=== PATIENT | female | born 2005 | race Caucasian/White ===

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

== ENCOUNTER 2024-02-14 17:01 | Outpatient (CLI) | payer OTHER, SELFPAY ==
[2024-02-14 17:27] LABS: HCG Quant, Pregnancy 383 mIU/mL (1-3)
== END 2024-02-14 17:02 | disposition home or self-care (01) ==
LOC: LBO 17:03
PROVIDERS: PCP Family Medicine; Visit Provider Advanced Practice Midwife
DX: O26.91 Pregnancy related conditions, unspecified, first trimester (principal)
CPT/HCPCS: 36415; 84702

== ENCOUNTER 2024-02-16 17:16 | Outpatient (CLI) | payer OTHER, SELFPAY ==
[2024-02-16 16:32] LABS: HCG Quant, Pregnancy 299 mIU/mL (1-3)
== END 2024-02-16 17:17 | disposition home or self-care (01) ==
LOC: LBO 17:17
PROVIDERS: PCP Family Medicine; Visit Provider Advanced Practice Midwife
DX: O26.91 Pregnancy related conditions, unspecified, first trimester (principal)
CPT/HCPCS: 36415; 84702

== ENCOUNTER 2024-02-16 18:09 | Emergency (ER) | payer OTHER, SELFPAY ==
[2024-02-16 18:12] VITALS: BP 143/88; PULSE 116; RESP 18; TEMP 36.6; O2SAT 99
--- NOTE | 2024-02-16 18:30 | ED.GENADUL_ITS ---
Discharge Plan Disposition Patient Disposition: Home Condition: Stable Discharge Details Clinical Impression: Threatened miscarriage in early Primary Care Provider: Michael Tavera ED Provider: Gilma Perez Home Meds and New Rx's Prescriptions: No Action No Known Home Meds Discharge Instructions Instructions: Bleeding in Early ED Additional Instructions: Please schedule yourself for the ultrasound, call the number on the sheet. Pelvic rest (no tampons or intercourse) until cleared by your REAL ESTATE ACQUISITION ANALYST. Follow up with [facility] in 3-5 days. Increase oral fluids, eat well. Return to the ER if you are bleeding and soaking through more than 2 pads an hour, you feel dizzy or lightheaded, fever, vomiting, or concerns. Your HCG is continuing to decrease the level today is 267. (Down from 299 this am). Follow up with primary care provider in 3-5 days. Return to ED sooner if any worsening or concerns. Referrals: [facility] [Provider Group] - 3 days Michael Tavera [Primary Care Provider] - 1 week Discharge Data Discharge Date/Time-TO BE ENTERED AT DEPARTURE: 02/16/24 21:15 HPI General Mode of arrival: ambulatory . Date/Time Provider Initiated Documentation: 02/16/24 18:15 . Limitations to Documentation: no limitations . Information obtained by: patient, family, RN notes reviewed and old records reviewed . HPI Narrative: 18 year old female presents to ED after having a dropping HCG quant level drawn x 2 at off site facility. Was unable to be seen again until Monday. Denies vaginal spotting or abdominal cramping at this time. Related Data Home Medications ?Medication ?Instructions ?Recorded ?Confirmed Unknown [No Known Home Meds] 04/24/18 05/24/21 Allergies Allergy/AdvReac Type Severity Reaction Status Date / Time No Known Allergies Allergy Verified 05/24/21 11:25 General Stated Complaint: REAL ESTATE ACQUISITION ANALYST ANNA MARIE: 3 Review of Systems All systems reviewed & are unremarkable except as noted in HPI and below Exam Narrative Exam Narrative: Constitutional: Alert and oriented x3. Appears stated age. Normal body habitus. Head: Normocephalic, no trauma. Eyes: Pupils PERRL, Red reflex noted, EOM's intact. Eyelids symmetrical without lesions, discharge, or swelling. ENT: Bilateral TM's WNL, External ear normal to inspection, no mastoid TTP, swelling, or erythema, Nasal turbinates WNL, no nasal discharge. Normal dentition, Posterior pharynx WNL, no exudate. Chest: RRR, Normal S1, S2, distal pulses intact. Resp: Lungs clear to auscultation bilaterally, no wheezes, rales, or rhonchi. Abdomen: Soft, non-distended, Normoactive bowel sounds all 4 quads. Musculoskeletal: Normal gait, Moves all 4 extremities without difficulty. Skin: No suspicious rashes or lesions. Capillary refill less than 2 sec. Neurologic: Cranial nerves II-XII intact. Alert and oriented x 3. Motor: No deficits noted. Sensory: Intact bilaterally all 4 extremities. Hematologic/Lymphatic: No ecchymosis, no lymphadenopathy. Course Vital Signs Vital signs: Vital Signs Temperature 36.6 C 02/16/24 18:12 Pulse 116 H 02/16/24 18:12 Respiratory Rate 18 02/16/24 18:12 Blood Pressure 143/88 H 02/16/24 18:12 Pulse Oximetry 99 02/16/24 18:12 Temperature 36.6 C 02/16/24 18:12 Temperature Source Temporal Artery Scan 02/16/24 18:12 Pulse 116 H 02/16/24 18:12 Respiratory Rate 18 02/16/24 18:12 Blood Pressure 143/88 H 02/16/24 18:12 Blood Pressure Position Sitting 02/16/24 18:12 Pulse Oximetry 99 02/16/24 18:12 Oxygen Delivery Method Room Air 02/16/24 18:12 Oxygen Flow Rate 0 02/16/24 18:12 Medical Decision Making 18 year old female presents to ED after having a dropping HCG quant level drawn x 2 at off site facility. Was unable to be seen again until Monday. Denies vaginal spotting or abdominal cramping at this time. Ultrasound at this time is unavailable we will order an outpatient ultrasound to be done tomorrow if possible. Will draw repeat hCG quant, Rh type and get a urinalysis. Urinalysis shows no evidence for UTI, patient is O-, beta-hCG quant is lower which is 267 compared to 299 earlier today. I do suspect threatened miscarriage. Will discuss home care pelvic rest and follow-up with women's wellness with patient and family who verbalized understanding. Outpatient ultrasound ordered to have done with follow-up with PCP and/or women's wellness. Lab Data Lab results reviewed: Yes I reviewed the patient's lab results. Labs: Laboratory Tests Range/Units 02/16/24 02/16/24 02/16/24 18:42 19:21 19:32 Beta HCG, Quant (1-3) mIU/mL 267 H Urine Color (Yellow) Yellow Urine Clarity (Clear) Clear Urine pH (5-8) 5.5 Ur Specific [place] (1.005-1.025) 1.010 Urine Protein (Neg-Trace) mg/dL Negative Urine Ketones (Negative) mg/dL Negative Urine Blood (Negative) Negative Urine Nitrite (Negative) Negative Urine Bilirubin (Negative) Negative Urine Urobilinogen (Up to 0.2) mg/dL 0.2 Ur Leukocyte Esterase (Negative) Negative Urine Glucose (Negative) mg/dL Negative ABO/Rh O Negative O Negative Antibody Screen NEGATIVE [employer]og[employer] Unit Number [id number] Unit Expiration Date 08/07/24 Product Lot # [id number] Quality:SDOH Health Related Social Needs: No Data to Display PFSH All Active Problems (Updated 02/16/24 @ 20:25 by Gilma Perez NP) Threatened miscarriage in early (Acute) Racing heart beat (Acute) Episodic lightheadedness (Acute) Stress fracture of fibula with routine healing (Acute) Social History Smoking/Tobacco Use Status: Never Smoking risk assessment performed?: Yes Alcohol Intake: never Drug use: Never Substance use type: does not use Do you feel safe in your relationship?: Yes
[2024-02-16 19:23] LABS: HCG Quant, Pregnancy 267 mIU/mL (1-3)
[2024-02-16 19:36] LABS: Bilirubin Negative (Negative); Blood Negative (Negative); Clarity Clear (Clear); Glucose Negative (Negative); Ketones Negative (Negative); Leukocyte Esterase Negative (Negative); Nitrite Negative (Negative); Urobilinogen 0.2 mg/dL (Up to 0.2); pH 5.5 (5-8)
[2024-02-16 20:50] VITALS: BP 146/51; PULSE 93; RESP 18; O2SAT 99
[2024-02-16] MEDS: RHO(D) Immune Globulin 1,500 UNIT Syringe 1500 UNIT IM (20:50)
[2024-02-16 21:14] VITALS: BP 140/71; PULSE 78; RESP 18; O2SAT 100
[2024-02-16 21:15] VITALS: BP 140/71; PULSE 78; RESP 18; O2SAT 100
== END 2024-02-16 21:15 | disposition home or self-care (01) ==
PROVIDERS: Emergency Provider Registered Nurse Emergency; PCP Family Medicine
DX: O20.0 Threatened abortion (principal); Z3A.01 Less than 8 weeks gestation of pregnancy
CPT/HCPCS: 36415; 86850; 86900; 86901; 90384; 99283; 81003; 84702; J2790

== ENCOUNTER 2024-02-26 01:50 | Outpatient (CLI) | payer OTHER, SELFPAY ==
[2024-02-26 16:37] LABS: HCG Quant, Pregnancy 321 mIU/mL (1-3)
== END 2024-02-26 01:51 | disposition home or self-care (01) ==
LOC: LBO 01:50
PROVIDERS: PCP Family Medicine; Visit Provider Obstetrics & Gynecology Gynecology
DX: O00.102 Left tubal pregnancy without intrauterine pregnancy (principal)
CPT/HCPCS: 36415; 84702

== ENCOUNTER 2024-02-28 15:40 | Outpatient (CLI) | payer OTHER, SELFPAY ==
[2024-02-28 16:05] LABS: HCG Quant, Pregnancy 258 mIU/mL (1-3)
== END 2024-02-28 15:41 | disposition home or self-care (01) ==
LOC: LBO 15:40
PROVIDERS: PCP Family Medicine; Visit Provider Obstetrics & Gynecology Gynecology
DX: O00.102 Left tubal pregnancy without intrauterine pregnancy (principal)
CPT/HCPCS: 36415; 84702

== ENCOUNTER 2024-03-06 15:26 | Outpatient (CLI) | payer OTHER, SELFPAY ==
[2024-03-06 17:21] LABS: HCG Qual (Serum) Positive
[2024-03-06 19:43] LABS: HCG Quant, Pregnancy 37 mIU/mL (1-3)
== END 2024-03-06 15:27 | disposition home or self-care (01) ==
LOC: LBO 15:27
PROVIDERS: PCP Family Medicine; Visit Provider Obstetrics & Gynecology Gynecology
DX: O00.102 Left tubal pregnancy without intrauterine pregnancy (principal); O26.899 Other specified pregnancy related conditions, unspecified trimester; Z67.91 Unspecified blood type, Rh negative
CPT/HCPCS: 84702; 84703

== ENCOUNTER 2024-03-22 15:39 | Outpatient (CLI) | payer OTHER, SELFPAY ==
[2024-03-22 16:22] LABS: HCG Quant, Pregnancy 1 mIU/mL (1-3)
== END 2024-03-22 15:40 | disposition home or self-care (01) ==
LOC: LBO 15:40
PROVIDERS: PCP Family Medicine; Visit Provider Obstetrics & Gynecology Gynecology
DX: O00.102 Left tubal pregnancy without intrauterine pregnancy (principal)
CPT/HCPCS: 36415; 84702

== ENCOUNTER 2024-12-22 14:15 | Emergency (ER) | payer OTHER, SELFPAY ==
[2024-12-22 14:17] VITALS: BP 146/86; PULSE 107; RESP 18; TEMP 36.7; O2SAT 98
--- NOTE | 2024-12-22 14:41 | W.ED.GENAD ---
Discharge Plan Disposition Patient Disposition: Home Condition: Stable Discharge Details Clinical Impression: Red stool, Nausea, vomiting and diarrhea Primary Care Provider: Michael Tavera ED Provider: Kimberly Brown Home Meds and New Rx's Prescriptions: No Action citalopram 10 mg tablet 10 mg PO DAILY Patient Comments: TAKE ONE TABLET BY MOUTH EVERY DAY Discharge Instructions Instructions: Nausea and Vomiting, Adult ED Additional Instructions: You were seen in the emergency department today for evaluation of nausea with vomiting and red diarrhea. In our department you had a full physical examination performed, and had laboratory studies that were quite reassuring. You received IV fluids because you did look slightly dehydrated, likely in the setting of alcohol consumption. At this time, I am most concerned for the potential for food to have discolored your stool, though you could certainly be developing an early case of gastroenteritis, and infection similar to this stomach flu. You had no evidence of ongoing blood in your stool or anemia to suggest heavy bleeding inside your colon. I recommend that you maintain good hydration and nutrition and follow-up with your primary care provider for reassessment in the next few days. If you have continued episodes of bloody stool, develop abdominal pain that changes or worsens, or have any other symptoms that cause you concern you should return to the emergency department for reevaluation. Thank you for allowing us to be part of your care. HPI General Mode of arrival: ambulatory. Date/Time Provider Initiated Documentation: 12/22/24 14:19. Limitations to Documentation: no limitations. Information obtained by: patient, family and old records reviewed. HPI Narrative: This is a 19-year-old female patient with a history of ectopic , presenting for evaluation of vomiting and red diarrhea. The patient reports that she thought initially that she had just drank too much last night, had 3 episodes of vomiting this morning but now feels much improved, without ongoing nausea, and has been able to tolerate oral intake. She did have an episode of diarrhea during this event that was bright red, states that she has since passed another formed stool without evidence of redness or blood. The patient reports that for the last several days she has not consumed any red foods, though she did consume food containing beets just prior to her episode of red diarrhea. She states that she has not had any exposure to untreated water sources, has not taken antibiotics recently, has not been hospitalized, and there is nobody else in her home that is sick with similar diarrheal symptoms. She states that she has not tried any medications for management of her symptoms, she does still have some generalized abdominal pain rated at a 4 out of 10, located in the lower portion of her abdomen. She is expecting her menses sometime in the next week and a half, does not utilize any form of prevention. States she is not experiencing any vaginal discharge or bleeding, urinary symptoms. Related Data Home Medications ?Medication ?Instructions ?Recorded ?Confirmed citalopram 10 mg tablet 10 mg PO DAILY 12/22/24 12/22/24 Allergies Allergy/AdvReac Type Severity Reaction Status Date / Time No Known Allergies Allergy Verified 12/22/24 14:19 General Stated Complaint: GI Bleed ANNA MARIE: 3 Exam Narrative Exam Narrative: Gen: Awake and alert, in no apparent distress HEENT: Non-icteric sclera Neck: Supple Lungs: No apparent respiratory distress, normal respiratory effort. CV: Appears well perfused, heart with slightly tachycardic rate but regular rhythm Abdomen: Non-distended, soft, nontender, no rigidity, rebound, or guarding : Rectal examination supervised by KATIE Bernal, showing a normal external anus with no hemorrhoids or fissures. STEFANY deferred MSK: Moves 4 extremities without apparent limitation in ROM Skin: Visualized skin without rashes, cyanosis. Neuro: Normal Gait, no obvious focal deficits or facial asymmetry. Speaks in full, clear sentences. Psych: Appropriate for situation. Course Vital Signs Vital signs: Vital Signs Temperature 36.7 C 12/22/24 14:17 Pulse 107 H 12/22/24 14:17 Respiratory Rate 18 12/22/24 14:17 Blood Pressure 146/86 H 12/22/24 14:17 Pulse Oximetry 98 12/22/24 14:17 Temperature 36.7 C 12/22/24 14:17 Pulse 107 H 12/22/24 14:17 Respiratory Rate 18 12/22/24 14:17 Blood Pressure 146/86 H 12/22/24 14:17 Pulse Oximetry 98 12/22/24 14:17 Medical Decision Making This is a 19-year-old female patient presenting for evaluation of nausea with vomiting and red diarrhea. Differential includes but is not limited to discoloration due to food intake/beats, certainly considered gastroenteritis, including invasive enterocolitis's that can cause bloody diarrhea. The patient is reassuringly without any high risk features for infectious diarrhea. She has no evidence of external hemorrhoids or fissures, and the presence of a nonbloody stool after the initial event is reassuring against a large active lower GI bleed. I considered sequelae of alcohol intoxication/hangover. Considered anemia, dehydration, metabolic and electrolyte derangement. Given the patient's reassuring abdominal examination I do not feel that there is an indication at this time to proceed with advanced imaging. The patient endorses concern about the cause of her symptoms and is desiring of a laboratory workup which I think is not unreasonable. Will obtain a CBC, CMP, magnesium, urinalysis and urine screen. I will provide the patient with a liter of IV fluids for her mild tachycardia and Tylenol for initial management of her pain. - I reviewed the patient's laboratory studies, which show mild leukocytosis which could be explained by her episodes of vomiting, and no anemia or thrombocytopenia. Chemistry panel shows no electrolyte derangements, evidence of kidney dysfunction or liver disease, urinalysis noninfectious though she does have trace ketones and trace blood. [id number] test was negative. On reassessment after fluids, the patient reports that she is feeling much improved. She has no nausea and has tolerated oral intake, and has not had any subsequent episodes of bloody diarrhea. I explained to the patient my considerations including discoloration from food, gastroenteritis, as well as GI bleed. Where she is feeling slightly improved I feel that it is reasonable for her to follow-up with her outpatient providers for reassessment, and I counseled her on monitoring of her symptoms and return precautions. At this time, the patient has had a full medical evaluation and is safe for discharge to home. They are hemodynamically stable, ambulatory, and tolerating PO. They are understanding of the follow-up plan and return precautions. They left our facility without incident. Kimberly Brown MD [facility] All Active Problems (Updated 12/22/24 @ 15:34 by Kimberly Brown MD) Nausea, vomiting and diarrhea (Acute) Red stool (Acute) Rh negative state in antepartum period (Acute) 02/16/24. Rhogam administered in ED after diagnosis of ectopic . Ectopic (Acute) Racing heart beat (Acute) Episodic lightheadedness (Acute) Stress fracture of fibula with routine healing (Acute) Social History Smoking/Tobacco Use Status: Never Smoking risk assessment performed?: Yes Alcohol Intake: current Alcohol Intake frequency: holidays/special occasions only Drug use: Never Substance use type: does not use Do you feel safe in your relationship?: Yes PAWSS Have you Been Recently Intoxicated or Drunk Within the Last 30 days?: No Have you Ever Experienced Previous Episodes of Alcohol Withdrawal?: No Have you ever Experienced Withdrawal Seizures?: No Have you ever Experienced Delirium Tremens(DT)s?: No Have you ever undergone Alcohol Rehabilitation Treatment (i.e, inpt ot outpatient treatment programs)?: No Have you ever Experienced Blackouts?: No Have you ever Combined Alcohol with other Downers within the last 90 days?: No Have you ever Combined Alcohol with any other Substance of Abuse during the last 90 days?: No Positive Blood Alcohol level on Presentation? [PCS.BAL]: No Evidence of Increased Autonomic Activity (i.e. HR>120, tremor, sweating, agitation, nausea)?: No Result: 0
[2024-12-22 14:52] LABS: Abs Immature Grans 0.03 10^3/uL (0.0-0.06); HCT 41.2 % (36.0-46.0); HGB 13.6 g/dL (11.2-15.7); Immature Grans % 0.2 %; MCH 27.6 pg (27.0-33.0); MCHC 33.0 % (32.0-36.0); MCV 84 fL (80-95); MPV 10.1 fL (8.0-11.0); Platelet Count 345 10^3/uL (130-400); RBC 4.92 10^6/uL (3.93-5.22); RDW 13.1 % (11.7-14.6); RDW-SD 39.8 fL; WBC 12.64 10^3/uL (4.4-10.8)
[2024-12-22] MEDS: Lactated Ringers 1,000 ML 1000 ML IV (14:53)
[2024-12-22] MEDS: Acetaminophen 500 MG TAB 1000 MG PO (14:53)
[2024-12-22 14:58] LABS: Glucose Negative (Negative)
[2024-12-22 15:18] LABS: ALT 34 U/L (14-59); AST 27 U/L (15-37); Albumin 3.7 g/dL (3.4-5.0); Alkaline Phosphatase 91 U/L (46-116); Anion Gap 8.9 mmol/L (3-11); BUN 15 mg/dL (7-18); Bilirubin, Total 0.4 mg/dL (0.2-1.0); CO2 30.1 mmol/L (21.0-32.0); Calcium 9.0 mg/dL (8.5-10.1); Chloride 102 mmol/L (98-107); Estimated GFR 93.28 (mL/min/1.73m2); Glucose 104 mg/dL (74-106); Magnesium 1.9 mg/dL (1.8-2.4); Potassium 3.5 mmol/L (3.5-5.1); Sodium 141 mmol/L (136-145); Total Protein 7.8 g/dL (6.4-8.2)
[2024-12-22 15:34] LABS: C & S Indicated? No; RBC 0-2 HPF (0-2); WBC Negative HPF (0-5)
[2024-12-22 15:42] VITALS: BP 114/57; PULSE 71; TEMP 36.7
== END 2024-12-22 15:43 | disposition home or self-care (01) ==
PROVIDERS: Emergency Provider Emergency Medicine; PCP Family Medicine
DX: R11.2 Nausea with vomiting, unspecified (principal); K92.1 Melena; R19.7 Diarrhea, unspecified
CPT/HCPCS: 80053; 99283; 81003; 81015; 83735; 85025